=== PATIENT | male | born 1970 | race Caucasian/White ===

== ENCOUNTER 2021-04-08 19:02 | Inpatient (IN) | payer OTHER, SELFPAY ==
[2021-04-08] VITALS (9 sets, daily range): BP systolic 121–154; BP diastolic 52–83; PULSE 70–90; RESP 20–24; TEMP 36.7–37.3; O2SAT 88–97; BMI 32.8; BMI 33.0
--- NOTE | 2021-04-08 19:32 | ECG_ITS ---
APPROVED REPORT Exam: Resting ECG HR:74 bpm ECG Measurements Heart Rate 74 AXES HI 156 P 39 QRSd 86 QRS 30 QT 382 T 11 QTc 424 Conclusion Normal sinus rhythm Normal ECG Electronically signed by : Neal Washington MD 04/12/2021 13:52:09
--- NOTE | 2021-04-08 19:51 | XR_ITS ---
PROCEDURE INFORMATION: Exam: XR Chest Exam date and time: 04/08/2021 7:51 PM Age: 50 years old Clinical indication: Patient HX: Cough, congestion for 1 week, nonsmoker TECHNIQUE: Imaging protocol: XR of the chest. Views: 2 views. COMPARISON: No relevant prior studies available. FINDINGS: Lungs: Lungs are mildly hypoinflated. There are patchy opacities scattered throughout both lungs, greatest in the perihilar regions, suspicious for multifocal pneumonia (possibly atypical/viral). Pleural spaces: No pleural effusion. No pneumothorax. Heart/Mediastinum: Normal heart size. Bones/joints: Scattered mild degenerative changes. IMPRESSION: Findings suspicious for multifocal pneumonia, possibly atypical/viral.
[2021-04-08 20:07] LABS: Influenza A, PCR Not Detected (NotDetected); Influenza B, PCR Not Detected (NotDetected)
[2021-04-08 20:08] LABS: Basophils % 0.8 % (0.1-2.0); Eosinophils % 0.2 % (0.1-12.0); Hematocrit 46.6 % (42.0-52.0); Hemoglobin 15.3 g/dL (14.1-18.0); Lymphocytes # 0.7 K/mm3 (0.7-4.5); Lymphocytes % 18.7 % (10-50); Mean Corpuscular HGB Conc 32.8 g/dL (31.8-35.4); Mean Corpuscular Hemoglobin 29.5 pg (27.0-31.2); Mean Corpuscular Volume 89.9 fl (80-94); Mean Platelet Volume 8.4 fl (7.4-10.4); Monocytes # 0.2 K/mm3 (0.1-1.0); Monocytes % 4.2 % (1.7-9.3); Neutrophils # 2.7 K/mm3 (1.8-7.8); Neutrophils % 76.1 % (37.0-80.0); Platelet Count 258 K/mm3 (142-424); Red Blood Count 5.19 M/mm3 (4.60-6.20); Red Cell Distribution Width 14.1 % (11.5-17.5); White Blood Count 3.5 K/mm3 (4.8-10.8)
[2021-04-08 20:15] LABS: Lactic Acid 1.2 mmol/L (0.7-2.1)
[2021-04-08 20:15] LABS: Alanine Aminotransferase 39 U/L (12-78); Albumin Level 4.4 g/dl (3.5-5.0); Albumin/Globulin Ratio 1.3 (1.1-1.8); Alkaline Phosphatase 67 U/L (38-126); Amylase 53 U/L (30-110); Anion Gap 11.8 mEq/L (5-15); Aspartate Amino Transferase 51 U/L (17-59); Bilirubin,Total 1.1 mg/dl (0.2-1.3); Blood Urea Nitrogen 16 mg/dl (9-20); Calcium 9.3 mg/dl (8.4-10.2); Carbon Dioxide 32 mmol/L (22.0-30.0); Chloride 99 mmol/L (98-107); Creatinine Clearance Estimated 120 mL/min (50-200); Estimated Glomerular Filt Rate 71 ml/min (>60); GFR (African American) 85 ML/MIN (>60); Globulin 3.4 g/dL (1.3-3.2); Glucose 112 mg/dl (74-100); Potassium 3.8 mmoL/L (3.5-5.1); Sodium 139 mmol/L (136-145); Total Protein,Serum 7.8 g/dl (6.3-8.2)
[2021-04-08 20:20] LABS: C-Reactive Protein 86.5 mg/L (0-4)
[2021-04-08 20:28] LABS: Coronavirus 19, PCR Detected (NotDetected)
[2021-04-08 20:32] LABS: Erythrocyte Sedimentation Rate 38 mm/hr (0-20)
[2021-04-08 20:33] LABS: Troponin I < 0.01 ng/ml (0.00-0.034)
--- NOTE | 2021-04-08 20:38 | CT_ITS ---
PROCEDURE INFORMATION: Exam: CTA Chest With Contrast Exam date and time: 04/08/2021 8:38 PM Age: 50 years old Clinical indication: Shortness of breath; Patient HX: SOA; Additional info: Covid positive TECHNIQUE: Imaging protocol: Computed tomographic angiography of the chest with contrast. 3D rendering (Not supervised by radiologist): MIP and/or 3D reconstructed images were created by the technologist. Radiation optimization: All CT scans at this facility use at least one of these dose optimization techniques: automated exposure control; mA and/or kV adjustment per patient size (includes targeted exams where dose is matched to clinical indication); or iterative reconstruction. Contrast material: ISO 370; Contrast volume: 70 ml; Contrast route: INTRAVENOUS (IV); COMPARISON: CR XR CHEST 2V 04/08/2021 7:45 PM FINDINGS: Pulmonary arteries: No large or central pulmonary embolus. There is diffuse artifactual heterogeneity of the subsegmental pulmonary arteries, limiting their evaluation, without convincing filling defect. Aorta: Normal caliber of the thoracic aorta. No aortic dissection. Left vertebral artery arises directly from the aortic arch, an anatomic variation. Lungs: There are numerous patchy ground-glass opacities throughout both lungs, compatible with multifocal pneumonia. Calcified granuloma in the right lower lobe. Pleural spaces: Trace pleural effusions. No pneumothorax. Heart: Normal heart size. Nonspecific small pericardial effusion. Lymph nodes: There is enlarged subcarinal lymph node measuring 2.5 x 1.7 cm. There also enlarged right paratracheal, precarinal, aortopulmonary window, prevascular, and bilateral hilar lymph nodes measuring up to 1.5 cm in caliber. These are all nonspecific, may be reactive to the pneumonia. There are scattered calcified lymph nodes related to old granulomatous disease. Diaphragm: Small hiatal hernia. Distal esophageal wall thickening is not fully evaluated on CT imaging, but suggested esophagitis. Visualized upper abdomen: Hepatosplenomegaly. Diffuse hepatic steatosis. Calcified granulomas in the liver and spleen. Exophytic right upper pole cyst measuring 2.5 cm. Bones/joints: Mild spondylosis. No acute fracture. Soft tissues: Unremarkable. IMPRESSION: 1. No evidence of pulmonary embolus. 2. Multifocal pneumonia, compatible with reported diagnosis of COVID-19. 3. Small hiatal hernia. Distal esophageal wall thickening suggesting esophagitis. 4. Other chronic/ancillary findings as above.
--- NOTE | 2021-04-08 21:10 | HMH.EDSOB ---
ED Disposition Clinical Impression: Pneumonia due to COVID-19 virus, Hypothyroidism (acquired), Obesity (BMI 30-39.9) Disposition: Admitted As Inpatient Condition on Discharge: Serious - Critical Care Critical Care Time: No Attestation: On 04/08/21, the high probability of a clinically significant, sudden or life threatening deterioration of the following system(s) required my full and direct attention, intervention and personal management. The time I documented below is in addition to time spent performing reported procedures but includes the following listed in this critical care notation. Medical Decision Making - Medical Records Medical records reviewed: Yes: I reviewed the patient's medical records. - [place] Inquiry Pt receiving controlled substance: No Vital Signs: 04/08/21 19:04 04/08/21 19:43 04/08/21 19:48 Temperature 99.1 F 99.1 F 99.1 F Temperature Source Oral Oral Pulse Rate 80 Pulse Rate [Apical] 90 90 Respiratory Rate 20 20 20 Blood Pressure 134/78 Blood Pressure [Right Arm] 121/73 132/82 Blood Pressure Mean [Right Arm] 89 98 Blood Pressure Source [Right Arm] Automatic Cuff Automatic Cuff Blood Pressure Position [Right Arm] Sitting Sitting 02 Sat by Pulse Oximetry 93 L 93 L 95 Oxygen Delivery Method Room Air Room Air 04/08/21 20:00 04/08/21 20:15 04/08/21 20:30 Temperature Temperature Source Pulse Rate 81 76 75 Pulse Rate [Apical] Respiratory Rate Blood Pressure Blood Pressure [Right Arm] Blood Pressure Mean [Right Arm] Blood Pressure Source [Right Arm] Blood Pressure Position [Right Arm] 02 Sat by Pulse Oximetry 95 97 94 L Oxygen Delivery Method 04/08/21 20:35 Temperature Temperature Source Pulse Rate 74 Pulse Rate [Apical] Respiratory Rate 20 Blood Pressure 132/77 Blood Pressure [Right Arm] Blood Pressure Mean [Right Arm] Blood Pressure Source [Right Arm] Blood Pressure Position [Right Arm] 02 Sat by Pulse Oximetry 88 L Oxygen Delivery Method Room Air - Lab Data Lab results reviewed: Yes: I reviewed the patient's lab results. Lab Results 04/08/21 19:25: SARS-CoV-2 (PCR) Detected A, Influenza A Untype (PCR) Not detected, Influenza Type B (PCR) Not detected 04/08/21 19:27: Lactate 1.2 04/08/21 19:50: WBC 3.5 L, RBC 5.19, Hgb 15.3, Hct 46.6, MCV 89.9, MCH 29.5, MCHC 32.8, RDW 14.1, Plt Count 258, MPV 8.4, Neut % (Auto) 76.1, Lymph % (Auto) 18.7, [place] % (Auto) 4.2, Eos % (Auto) 0.2, Baso % (Auto) 0.8, Neut # (Auto) 2.7, Lymph # (Auto) 0.7, [place] # (Auto) 0.2, Eos # (Auto) 0.0, Baso # (Auto) 0.0 04/08/21 19:50: Sodium 139, Potassium 3.8, Chloride 99, Carbon Dioxide 32 H, Anion Gap 11.8, BUN 16, Creatinine 1.10, Estimated Creat Clear 120, Estimated GFR 71, Est GFR ( Amer) 85, Glucose 112 H, Calcium 9.3, Total Bilirubin 1.1, AST 51, ALT 39, Alkaline Phosphatase 67, Troponin I < 0.01, C-Reactive Protein 86.5 H, Total Protein 7.8, Albumin 4.4, Globulin 3.4 H, Albumin/Globulin Ratio 1.3, Amylase 53 04/08/21 19:50: ESR 38 H Result diagrams: 04/08/21 19:50 04/08/21 19:50 Orders (Tests/Meds): ED MEDICATIONS Generic Name Dose Route Start Last Admin Trade Name Freq PRN Reason Stop Dose Admin Sodium Chloride 1,000 mls @ 999 mls/hr 04/08/21 20:00 04/08/21 19:57 Sod Chlor 0.9% 1000ml Bag IV 04/08/21 21:00 999 mls/hr .[id number] SELENA Administration Discontinued Medications Generic Name Dose Route Start Last Admin Trade Name Freq PRN Reason Stop Dose Admin Dexamethasone Sodium Phosphate 10 mg 04/08/21 19:51 04/08/21 19:58 Dexamethasone 4mg/Ml 5ml Mdv IV 04/08/21 19:52 10 mg ONCE ONE Administration Iopamidol 70 ml 04/08/21 21:13 04/08/21 21:14 Iopamidol-370 (76%);100ml Bottle IV 04/08/21 21:14 70 ml ONCE ONE Administration Ketorolac Tromethamine 30 mg 04/08/21 19:51 04/08/21 19:57 Ketorolac 30mg/Ml Vial IV 04/08/21 19:52 30 mg ONCE ONE Administration Sodium Chloride 50 ml 04/08
--- NOTE | 2021-04-08 23:08 | PC.NURSE ---
patient up to floor @ this time via Wheelchair.
[2021-04-09 04:00] VITALS: BP 115/75; PULSE 58; RESP 18; TEMP 36.3; O2SAT 94
[2021-04-09 07:10] LABS: Eosinophils % 0.1 % (0.1-12.0); Hematocrit 40.8 % (42.0-52.0); Lymphocytes # 0.7 K/mm3 (0.7-4.5); Lymphocytes % 27.2 % (10-50); Mean Corpuscular HGB Conc 32.6 g/dL (31.8-35.4); Mean Corpuscular Hemoglobin 29.9 pg (27.0-31.2); Mean Corpuscular Volume 91.8 fl (80-94); Mean Platelet Volume 8.6 fl (7.4-10.4); Monocytes # 0.1 K/mm3 (0.1-1.0); Monocytes % 4.9 % (1.7-9.3); Neutrophils # 1.8 K/mm3 (1.8-7.8); Neutrophils % 66.8 % (37.0-80.0); Platelet Count 226 K/mm3 (142-424); Red Blood Count 4.44 M/mm3 (4.60-6.20); Red Cell Distribution Width 14.1 % (11.5-17.5); White Blood Count 2.7 K/mm3 (4.8-10.8)
--- NOTE | 2021-04-09 07:17 | HMH.PHAINT ---
verified home medication list using list from [facility]
[2021-04-09 07:18] LABS: Hemoglobin 13.3 g/dL (14.1-18.0)
--- NOTE | 2021-04-09 07:20 | HMH.PHAVTE ---
[facility] Pharmacy VTE Monitoring - Patient Demographics Admission date: 04/09/21 Report Date: 04/09/21 Time: 07:20 Allergies/Adverse Reactions: Patient Allergies Penicillins Allergy (Verified 04/08/21 19:50) Unknown allergy reaction Height: 1.8 m Weight: 107.048 kg Patient Problems: Current Active Problems Pneumonia due to COVID-19 virus (Acute) Hypothyroidism (acquired) (Acute) Obesity (BMI 30-39.9) (Acute) - VTE Risk Labs: VTE Related Lab Results Hgb 13.3 g/dL (14.1-18.0) L D 04/09/21 06:35 Hct 40.8 % (42.0-52.0) L 04/09/21 06:35 Plt Count 226 K/mm3 (142-424) 04/09/21 06:35 BUN 16 mg/dl (9-20) 04/08/21 19:50 Creatinine 1.10 mg/dl (0.66-1.25) 04/08/21 19:50 Estimated Creat Clear 120 mL/min (50-200) 04/08/21 19:50 Was VTE Risk Assessment Performed: Yes VTE Score: 2 VTE Risk Level: Very Low Risk Clinical Trial Participant: No - Prophylaxis VTE Prophylaxis Ordered?: Yes Types of VTE Prophylaxis: TEDS Knee High Location of Applied Device: Bilateral Lower Extremeties
[2021-04-09 07:21] LABS: Anion Gap 8.6 mEq/L (5-15); Blood Urea Nitrogen 18 mg/dl (9-20); Calcium 8.8 mg/dl (8.4-10.2); Carbon Dioxide 31 mmol/L (22.0-30.0); Chloride 102 mmol/L (98-107); Chol/HDL Ratio 5.7 (1-3.5); Cholesterol 85 mg/dl (140-200); Creatinine Clearance Estimated 165 mL/min (50-200); Estimated Glomerular Filt Rate 102 ml/min (>60); GFR (African American) 123 ML/MIN (>60); Glucose 145 mg/dl (74-100); HDL Cholesterol 15 mg/dl (40-60); Magnesium 2.5 mg/dl (1.6-2.3); Potassium 4.6 mmoL/L (3.5-5.1); Sodium 137 mmol/L (136-145); Triglycerides 106 mg/dl (30-150); VLDL Cholesterol 21 mg/dL (0-40)
[2021-04-09 07:32] LABS: Direct LDL Cholesterol 42.87 mg/dL (100-129)
[2021-04-09 08:00] VITALS: BP 137/81; PULSE 69; RESP 18; TEMP 36.6; O2SAT 95
--- NOTE | 2021-04-09 09:10 | HMH.PULMCON ---
*Admission Date: 04/09/21 *Reason for consult:: Acute hypoxic respiratory failure, COVID-19 pneumonia *History of present illness: Mr. Vega is a 50-year-old female never smoker, no prior respiratory complaints, not yet vaccinated for COVID-19 pneumonia presented to the hospital with worsening respiratory distress, found to be positive for COVID-19 and pulmonary was called for further management. Upon further questioning patient admits symptoms for the last 7 to 10 days, initially started as a fatigue and weakness eventually progressed to respiratory distress. 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 [facility] History Medical History: Denies:: Cancer, Diabetes Mellitus Type 1, Diabetes Mellitus Type 2, MRSA *Have you ever received a pneumonia vaccine?: No *Have you received a flu vaccine this season?: No Other Medical History: Reports: Thyroid Disease (hypothyroid) Other Surgeries: Yes: No Previous Surgery Amputation: No Fractures: No - *Social History Last grade of school completed: 11th or 12th Smoking Status: Former smoker Alcohol Intake: never Alcohol Intake Frequency:: other Substance Use Type: other *Occupational Status:: employed Household Members: spouse, children *Travel in the last 8 weeks: None Family Hx:: Cancer ROS - Cons Reports body ache(s), Reports chills, Reports fatigue, Reports lack of energy - ENT Denies bleeding gums - Card Reports shortness of breath, Reports shortness of breath with activity, Denies chest pain at rest - Resp Respiratory: Reports system reviewed and no additional complaints, except as docu, Reports as per HPI, Reports shortness of breath, Reports change in phlegm color, Reports dyspnea, Reports excessive phlegm production, Denies pain on inspiration, Reports cough with sputum production, Denies pain with breathing - GI Gastrointestingal: Denies: abdominal pain - Psych Denies thoughts of hurting/killing others, Denies thoughts of hurting/killing yourself Meds Home Medications Medication Instructions Recorded Confirmed Type Levothyroxine Sodium 100 mcg PO DAILY 04/08/21 04/09/21 History [Levothyroxine 100mcg (0.1MG) Tab] Allergies Allergy/AdvReac Type Severity Reaction Status Date / Time Penicillins Allergy Unknown Verified 04/08/21 19:50 allergy reaction Exam - Constitutional Constitutional:: Present: no acute distress, comfortable - HENMT Exam HENMT: Present: normocephalic, atraumatic - Eye Exam Eyes:: Present: normal appearance both eyes and related structures - Neck Exam Neck:: Present: normal visual inspection - Respiratory Exam Respiratory:: Present: able to speak in complete sentences, no respiratory distress, rales. Absent: wheezing - Cardiovascular Exam Cardiac:: Present: S1, S2 - GI Exam GI:: Present: soft, no hepatosplenomegaly - Skin Exam Skin: Present: warm, no rash - Neurological Exam Neurological: Present: alert, awake, normal cognition - Extremities Exam Extremities: Present: no cyanosis, no clubbing, no edema Internal Medicine - CN: Reslt - Labs CBC & Chem 7: 04/09/21 06:35 04/09/21 06:35 Labs: Short CBC 04/08/21 04/09/21 Range/Units 19:50 06:35 WBC 3.5 L 2.7 L (4.8-10.8) K/mm3 Hgb 15.3 13.3 L D (14.1-18.0) g/dL Hct 46.6 40.8 L (42.0-52.0) % Plt Count 258 226 (142-424) K/mm3 BMP 04/08/21 04/09/21 19:50 06:35 Sodium 139 137 Potassium 3.8 4.6 D Chloride 99 102 Carbon Dioxide 32 H 31 H BUN 16 18 Creatinine 1.10 0.80 D Glucose 112 H 145 H D Calcium 9.3 8.8 Cardiac Enzymes 04/08/21 Range/Units 19:50 Troponin I < 0.01 (0.00-0.034) ng/ml Liver Function 04/08/21 Range/Units 19:50 Total Bilirubin 1.1 (0.2-1.3) mg/dl AST 51 (17-59) U/L ALT 39 (12-78) U/L Alkaline Phosphatase 67 (38-126) U/L Albumin 4.4 (3.5-5.0) g/dl A
--- NOTE | 2021-04-09 09:15 | HMH.HP ---
*Admission Date: 04/09/21 *Chief complaint: Shortness of Breath *History of present illness: 50 YOM to the [facility] ED for increasing SOA and feeloing weak.. He reports he has been SOA and increasely worse over last week. He reports prod thin cough w/ fefver/chills/body aches He denies vaccination. 04/08/21 CXR: FINDINGS: Lungs: Lungs are mildly hypoinflated. There are patchy opacities scattered throughout both lungs, greatest in the perihilar regions, suspicious for multifocal pneumonia (possibly atypical/viral). Pleural spaces: No pleural effusion. No pneumothorax. Heart/Mediastinum: Normal heart size. Bones/joints: Scattered mild degenerative changes. IMPRESSION: Findings suspicious for multifocal pneumonia, possibly atypical/viral. Electronically signed by Song Santoro MD 04/08/21 Chest CTA: FINDINGS: Pulmonary arteries: No large or central pulmonary embolus. There is diffuse artifactual heterogeneity of the subsegmental pulmonary arteries, limiting their evaluation, without convincing filling defect. Aorta: Normal caliber of the thoracic aorta. No aortic dissection. Left vertebral artery arises directly from the aortic arch, an anatomic variation. Lungs: There are numerous patchy ground-glass opacities throughout both lungs, compatible with multifocal pneumonia. Calcified granuloma in the right lower lobe. Pleural spaces: Trace pleural effusions. No pneumothorax. Heart: Normal heart size. Nonspecific small pericardial effusion. Lymph nodes: There is enlarged subcarinal lymph node measuring 2.5 x 1.7 cm. There also enlarged right paratracheal, precarinal, aortopulmonary window, prevascular, and bilateral hilar lymph nodes measuring up to 1.5 cm in caliber. These are all nonspecific, may be reactive to the pneumonia. There are scattered calcified lymph nodes related to old granulomatous disease. Diaphragm: Small hiatal hernia. Distal esophageal wall thickening is not fully evaluated on CT imaging, but suggested esophagitis. Visualized upper abdomen: Hepatosplenomegaly. Diffuse hepatic steatosis. Calcified granulomas in the liver and spleen. Exophytic right upper pole cyst measuring 2.5 cm. Bones/joints: Mild spondylosis. No acute fracture. Soft tissues: Unremarkable. IMPRESSION: 1. No evidence of pulmonary embolus. 2. Multifocal pneumonia, compatible with reported diagnosis of COVID-19. 3. Small hiatal hernia. Distal esophageal wall thickening suggesting esophagitis. 4. Other chronic/ancillary findings as above. Electronically signed by Song Santoro MD 50 YOM lying in bed resting quietly, he denies any increased SOA during night. Current oxygenation 94% on 2 L N/C. [facility] History Medical History: Denies:: Cancer, Diabetes Mellitus Type 1, Diabetes Mellitus Type 2, MRSA *Have you ever received a pneumonia vaccine?: No *Have you received a flu vaccine this season?: No Other Medical History: Reports: Thyroid Disease (hypothyroid) Other Surgeries: Yes: No Previous Surgery Amputation: No Fractures: No - *Social History Last grade of school completed: 11th or 12th Smoking Status: Former smoker Alcohol Intake: never *Occupational Status:: employed Household Members: spouse, children *Travel in the last 8 weeks: None Family Hx:: Cancer Review of Systems - Review of Systems Review of systems:: pertinent systems reviewed and negative unless documented below - Constitutional Reports body ache(s), Reports chills, Reports fatigue, Reports fever(s) - Eyes Denies blurry vision, Denies loss of vision - ENT Denies abnormal hearing, Denies mouth pain, Denies pain with swallowing - *Cardiovascular Reports shortness of breath, Reports shortness of breath with activity, Denies chest pain, Denies chest pain with activity - *Respiratory Reports chest congestion, Reports cough, Reports shortness of breath, Reports shortness of breath with activity, Denies coughing up blood
[2021-04-09 09:24] LABS: Chloride 105 mmol/L (98-107); Potassium 4.8 mmoL/L (3.5-5.1); Sodium 139 mmol/L (136-145)
[2021-04-09 09:27] LABS: Alanine Aminotransferase 32 U/L (12-78); Albumin Level 3.8 g/dl (3.5-5.0); Albumin/Globulin Ratio 1.1 (1.1-1.8); Alkaline Phosphatase 45 U/L (38-126); Anion Gap 12.8 mEq/L (5-15); Aspartate Amino Transferase 48 U/L (17-59); Bilirubin,Total 0.9 mg/dl (0.2-1.3); Calcium 8.4 mg/dl (8.4-10.2); Carbon Dioxide 26 mmol/L (22.0-30.0); Globulin 3.4 g/dL (1.3-3.2); Glucose 146 mg/dl (74-100); Total Protein,Serum 7.2 g/dl (6.3-8.2)
[2021-04-09 10:21] LABS: Blood Urea Nitrogen 18 mg/dl (9-20); Creatinine Clearance Estimated 165 mL/min (50-200); Estimated Glomerular Filt Rate 102 ml/min (>60); GFR (African American) 123 ML/MIN (>60)
[2021-04-09 12:00] VITALS: BP 133/91; PULSE 75; RESP 17; TEMP 36.9; O2SAT 92
--- NOTE | 2021-04-09 14:05 | PC.NURSE ---
Have educated pt on use of IS and encouraged use. Have also encouraged pt to lie prone and educated as to why. Pt verbs understanding and is pleasant and cooperative. VSS. Pt remains on 2 L NC. CB in reach. Mx continues.
[2021-04-09 16:00] VITALS: BP 139/67; PULSE 96; RESP 16; TEMP 36.8; O2SAT 96
[2021-04-09 19:18] VITALS: O2SAT 96
[2021-04-09 21:25] VITALS: BP 126/71; PULSE 68; RESP 20; TEMP 36.9; O2SAT 95
[2021-04-10] VITALS: BP 123/68; PULSE 68; RESP 17; TEMP 37; O2SAT 92
[2021-04-10 03:46] VITALS: BP 126/76; PULSE 68; RESP 16; TEMP 36.7; O2SAT 97
--- NOTE | 2021-04-10 05:24 | PC.NURSE ---
Patient rested well through night. VSS on 2L per nc. Alert and oriented x4. Denies pain. Assessment unchanged during shift. Patient up with sba to bathroom. Prones while in bed. IVF infusing per order.
[2021-04-10 05:31] VITALS: BMI 32.7
[2021-04-10 07:07] LABS: Basophils % 0.6 % (0.1-2.0); Eosinophils % 0.1 % (0.1-12.0); Hematocrit 38.7 % (42.0-52.0); Hemoglobin 12.5 g/dL (14.1-18.0); Lymphocytes # 1.1 K/mm3 (0.7-4.5); Lymphocytes % 23.7 % (10-50); Mean Corpuscular HGB Conc 32.2 g/dL (31.8-35.4); Mean Corpuscular Hemoglobin 29.7 pg (27.0-31.2); Mean Corpuscular Volume 92.2 fl (80-94); Mean Platelet Volume 8.8 fl (7.4-10.4); Monocytes # 0.2 K/mm3 (0.1-1.0); Monocytes % 5.1 % (1.7-9.3); Neutrophils # 3.2 K/mm3 (1.8-7.8); Neutrophils % 70.5 % (37.0-80.0); Platelet Count 256 K/mm3 (142-424); Red Cell Distribution Width 13.9 % (11.5-17.5); White Blood Count 4.6 K/mm3 (4.8-10.8)
[2021-04-10 07:14] LABS: Alanine Aminotransferase 30 U/L (12-78); Albumin Level 3.5 g/dl (3.5-5.0); Albumin/Globulin Ratio 1.3 (1.1-1.8); Alkaline Phosphatase 48 U/L (38-126); Anion Gap 10.8 mEq/L (5-15); Aspartate Amino Transferase 38 U/L (17-59); Bilirubin,Total 0.6 mg/dl (0.2-1.3); Blood Urea Nitrogen 17 mg/dl (9-20); Calcium 8.6 mg/dl (8.4-10.2); Carbon Dioxide 29 mmol/L (22.0-30.0); Chloride 107 mmol/L (98-107); Creatinine Clearance Estimated 164 mL/min (50-200); Estimated Glomerular Filt Rate 102 ml/min (>60); GFR (African American) 123 ML/MIN (>60); Globulin 2.7 g/dL (1.3-3.2); Glucose 98 mg/dl (74-100); Potassium 3.8 mmoL/L (3.5-5.1); Sodium 143 mmol/L (136-145); Total Protein,Serum 6.2 g/dl (6.3-8.2)
[2021-04-10 08:00] VITALS: BP 140/68; PULSE 78; RESP 19; TEMP 36.8; O2SAT 95; O2SAT 97
--- NOTE | 2021-04-10 09:14 | HMH.PULMPN ---
Internal Medicine - PN: Subj *Date: 04/10/21 *Time: 11:24 Interval history: No acute respiratory events overnight. Patient respiratory status remained stable. Patient admits improvement in his symptoms. Exam - Constitutional Constitutional:: Present: no acute distress, comfortable - HENMT Exam HENMT: Present: normocephalic, atraumatic - Eye Exam Eyes:: Present: normal appearance both eyes and related structures - Neck Exam Neck:: Present: normal visual inspection - Respiratory Exam Respiratory:: Present: able to speak in complete sentences, no respiratory distress, rales. Absent: wheezing - Cardiovascular Exam Cardiac:: Present: S1, S2 - GI Exam GI:: Present: soft - Skin Exam Skin: Present: warm, no rash - Neurological Exam Neurological: Present: alert, awake, normal cognition - Extremities Exam Extremities: Present: no cyanosis, no clubbing, no edema Assessment and Plan - Assessment and plan all Dx Assessment and Plan for all problems:: #Acute hypoxic respiratory failure: #COVID-19 pneumonia: 50-year-old male noted vaccinated. Never smoker. No prior respiratory complaints. CTA negative for Emboli, bilateral diffuse groundglass opacities Leucopenia. CRP elevated at 86.5. Interval update: Patient respiratory status remained stable. He continued to saturate 92 to 94% 2 L nasal cannula. He admits improvement in his symptoms. Plan: -Continue nasal cannula oxygen supplementation to maintain O2 saturation goal of 88% on above -Continue awake proning protocol -Continue remdesivir x5 days or until discharge and -Continue dexamethasone x10 days and baricitinib for 14 days. -Levofloxacin 750 mg IV daily for 5 days. -Combivent every 6 hours as needed. #Thank you for involving pulmonary in this patient care. We will follow the patient in pulmonary clinic in 4-6 weeks full PFT and 6-minute walk testing
[2021-04-10 11:42] VITALS: BP 124/79; PULSE 65; RESP 18; TEMP 36.6; O2SAT 93
--- NOTE | 2021-04-10 12:03 | HMH.DCSUM ---
General - General Admission date:: 04/08/21 Discharge date: 04/10/21 HPI HPI: 50 YOM to the [facility] ED for increasing SOA and feeloing weak.. He reports he has been SOA and increasely worse over last week. He reports prod thin cough w/ fefver/chills/body aches He denies vaccination. 04/08/21 CXR: FINDINGS: Lungs: Lungs are mildly hypoinflated. There are patchy opacities scattered throughout both lungs, greatest in the perihilar regions, suspicious for multifocal pneumonia (possibly atypical/viral). Pleural spaces: No pleural effusion. No pneumothorax. Heart/Mediastinum: Normal heart size. Bones/joints: Scattered mild degenerative changes. IMPRESSION: Findings suspicious for multifocal pneumonia, possibly atypical/viral. Electronically signed by Song Santoro MD 04/08/21 Chest CTA: FINDINGS: Pulmonary arteries: No large or central pulmonary embolus. There is diffuse artifactual heterogeneity of the subsegmental pulmonary arteries, limiting their evaluation, without convincing filling defect. Aorta: Normal caliber of the thoracic aorta. No aortic dissection. Left vertebral artery arises directly from the aortic arch, an anatomic variation. Lungs: There are numerous patchy ground-glass opacities throughout both lungs, compatible with multifocal pneumonia. Calcified granuloma in the right lower lobe. Pleural spaces: Trace pleural effusions. No pneumothorax. Heart: Normal heart size. Nonspecific small pericardial effusion. Lymph nodes: There is enlarged subcarinal lymph node measuring 2.5 x 1.7 cm. There also enlarged right paratracheal, precarinal, aortopulmonary window, prevascular, and bilateral hilar lymph nodes measuring up to 1.5 cm in caliber. These are all nonspecific, may be reactive to the pneumonia. There are scattered calcified lymph nodes related to old granulomatous disease. Diaphragm: Small hiatal hernia. Distal esophageal wall thickening is not fully evaluated on CT imaging, but suggested esophagitis. Visualized upper abdomen: Hepatosplenomegaly. Diffuse hepatic steatosis. Calcified granulomas in the liver and spleen. Exophytic right upper pole cyst measuring 2.5 cm. Bones/joints: Mild spondylosis. No acute fracture. Soft tissues: Unremarkable. IMPRESSION: 1. No evidence of pulmonary embolus. 2. Multifocal pneumonia, compatible with reported diagnosis of COVID-19. 3. Small hiatal hernia. Distal esophageal wall thickening suggesting esophagitis. 4. Other chronic/ancillary findings as above. Electronically signed by Song Santoro MD 50 YOM lying in bed resting quietly, he denies any increased SOA during night. Current oxygenation 94% on 2 L N/C. Hospital Course Hospital Course: 50 YOM to the [facility] ED for increasing SOA and feeloing weak.. He reports he has been SOA and increasingly worse over last week. He reports prod thin cough w/ fever/chills/body aches He denies vaccination. 04/08/21 CXR: FINDINGS: Lungs: Lungs are mildly hypoinflated. There are patchy opacities scattered throughout both lungs, greatest in the perihilar regions, suspicious for multifocal pneumonia (possibly atypical/viral). Pleural spaces: No pleural effusion. No pneumothorax. Heart/Mediastinum: Normal heart size. Bones/joints: Scattered mild degenerative changes.
--- NOTE | 2021-04-10 13:18 | SW/DCPLANNER ---
ATTEMPTED TO SET UP HOME 02 OUT OF A DME OUT OF [place] BUT THEY COULD NOT DELIVER A PORTABLE TANK UNTIL AFTER 6:00 RADHA, CALLED THE LOCAL DME [facility] AND THEY WILL BRING A PORTABLE TANK UP TO THE HOSPITAL AND PATIENT CAN LEAVE EARLIER.. I CALLED TO INFORM HER HE IS GOING TO DISCHARGE HOME..
== END 2021-04-10 15:25 | disposition home or self-care (01) | DRG 177 ==
LOC: ER 20:04 → 2ND 21:51
PROVIDERS: Nurse Practitioner Family; Admitting Provider Emergency Medicine; Emergency Provider Emergency Medicine; PCP Family Medicine; Visit Provider Emergency Medicine
DX: U07.1 COVID-19 (principal); J12.82 Pneumonia due to coronavirus disease 2019; J96.01 Acute respiratory failure with hypoxia; E03.9 Hypothyroidism, unspecified; E66.9 Obesity, unspecified; Z68.32 Body mass index [BMI] 32.0-32.9, adult
CPT/HCPCS: 71046; 71275; 80048; 80053; 80061; 82150; 83605; 83735; 84484; 85025; 85651; 86140; 93005; 96365; 96375; 99284; C9803; J1956; Q9967; U0003; U0005

== ENCOUNTER 2022-04-29 11:42 | Emergency (ER) | payer OTHER, SELFPAY ==
[2022-04-29 11:43] VITALS: BP 127/84; PULSE 65; RESP 16; TEMP 36.7; O2SAT 98; BMI 31.4
--- NOTE | 2022-04-29 11:49 | HMH.EDABDPAI ---
Discharge Plan Disposition Patient Disposition: Home, Self-Care Condition: Good Prescriptions Prescriptions: New ketorolac 10 mg Tablet 10 mg PO Q6H PRN (Reason: pain.) Qty: 8 0RF No Action levothyroxine 100 MCG tablet 100 mcg PO DAILY levofloxacin 750 MG tablet 750 mg PO DAILY 3 Days Qty: 3 0RF prednisone 20 MG tablet 20 mg PO BID 8 Days Qty: 16 0RF Referrals Follow up/Referrals: Bryan Gauthier MD [Primary Care Provider] - See instructions Activity Restrictions/Add. Instructions Additional Instructions/Restrictions: Drink plenty of fluids by mouth. Return immediately to the emergency department if you develop a fever or if you worsen in any way. You can take [id number] Tylenol as needed. The prescription I have written you can be taken with Tylenol. However do not take it with ibuprofen. You can take ibuprofen instead of the Toradol I have prescribed for you. Follow-up with a urologist if you do not improve in the next week or so. I have spoken with Dr. White who is now working in [place]. You can call his office for follow-up. Clinical Impressions Clinical Impression: Renal colic on left side Instructions Patient Instructions: Kidney Stones -- Adult, DI for Kidney Stones Discharge ED Provider: Brooklyn Trejo Abdominal Pain HPI General Chief Complaint: Abdominal Pain Stated Complaint: possible kidney stones Time Seen by Provider: 04/29/22 11:48 History of Present Illness HPI narrative: The patient presents to the emergency department complaining of left flank pain. This pain was a sudden onset pain that started last night. It then subsided and recurred this morning. At this point there is no pain anymore. The patient never had this pain before. He has no history of kidney stones. He feels completely normal at this time. He did feel nauseous when the pain was intense. The pain is not exacerbated by movement or position. Related Data Home Medications Medication Instructions Recorded Confirmed levothyroxine 100 mcg tablet 100 mcg PO DAILY Hypothyroidism 04/08/21 04/29/22 Previous Rx's Medication Instructions Recorded levofloxacin 750 mg tablet 750 mg PO DAILY 3 days #3 tabs 04/10/21 prednisone 20 mg tablet 20 mg PO BID 8 days #16 tabs 04/10/21 ketorolac 10 mg tablet 10 mg PO Q6H PRN pain. #8 tabs 04/29/22 Allergies Allergy/AdvReac Type Severity Reaction Status Date / Time Penicillins Allergy Unknown Verified 04/08/21 19:50 allergy reaction [facility] Disclaimer: The information contained in this section may have been updated after the patient was seen, as this information can be updated by other users. Social History Smoking Status: Former smoker alcohol intake: never substance use type: other current occupational status: employed Travel in the last 8 weeks: None household members: spouse and children current occupation: [employer] caffeine: Yes ROS Obtained: Yes All systems reviewed & no additional complaints except as documented Physical Exam General General appearance: alert and in no apparent distress Head Head exam: atraumatic Eye Eye exam: Present normal appearance and PERRL; Absent scleral icterus ENT ENT exam: Present normal exam Neck Neck exam: Present normal inspection and full ROM; Absent tenderness or meningismus Chest Chest inspection: Present normal inspection and symmetric chest wall rise; Absent tenderness Respiratory Respiratory exam: Present normal lung sounds bilaterally; Absent respiratory distress or accessory muscle use Cardiovascular Cardiovascular exam: Present regular rate, normal rhythm and normal heart sounds Abdominal Exam Abdominal exam: Present soft and normal bowel sounds; Absent distention, tenderness, heel tap sign, Barry's sign, Rovsing's sign, tenderness at McBurney's Point or mass Extremities Exam Extremities ex
--- NOTE | 2022-04-29 11:53 | CT_ITS ---
FINAL REPORT TECHNIQUE: Axial images through the abdomen and pelvis were performed without contrast.This study was performed with techniques to keep radiation doses as low as reasonably achievable, (ALARA). Individualized dose reduction techniques using automated exposure control or adjustment of mA and/or kV according to the patient's size were employed. CLINICAL HISTORY: Sudden onset left flank pain FINDINGS: ABDOMEN: The lung bases are clear. The heart size is normal. The liver is fatty infiltrated. A 23 mm mass is seen in the upper pole the right kidney which does not appear to represent a simple cyst. Favor complicated cyst over neoplasm. The recommend renal mass protocol CT for further evaluation. There is a less than 3 mm nonobstructing left renal stone. Moderate left hydronephrosis is seen secondary to a 3 mm stone at the level of the left UPJ. The spleen is normal. No adrenal mass is identified. The aorta is normal in caliber. There is no significant free fluid or adenopathy. PELVIS: The appendix is normal. There is mild wall thickening of the urinary bladder. There is no significant free fluid or adenopathy. IMPRESSION: Moderate left hydronephrosis secondary to a 3 mm stone at the level of the UPJ. Nonobstructing left nephrolithiasis. Small right renal mass, incompletely characterized, which does not appear to represent a simple cyst. Recommend renal mass protocol CT for further evaluation. Reviewed, Interpreted and Dictated by Zia Hammonds III, MD Transcribed by Jayde Carey Authenticated and . [facility]
[2022-04-29 11:56] LABS: Microscopic, Urine URINE MICROSCOPIC (MICROSCOPIC)
[2022-04-29 12:14] LABS: Appearance,Urine CLEAR (Clear); Bilirubin,Urine Negative (Negative); Blood, Urine 2+ (Negative); Color,Urine YELLOW (Yellow); Glucose,Urine (UA) Negative (Negative); Ketones,Urine Negative (Negative); Leukocyte Esterase,Urine Negative (Negative); Nitrate,Urine Negative (Negative); Protein,Urine Negative (Negative)
--- NOTE | 2022-04-29 12:28 | PC.NURSE ---
rounded on pt at this time, updated pt on POC. pt sitting at edge of bed on cellphone.
[2022-04-29 12:31] VITALS: BP 119/89; PULSE 74; RESP 20; O2SAT 96
[2022-04-29 12:39] LABS: Bacteria,Urine Trace /lpf; RBC,Urine Occasional #/hpf (0-3); Squamous Epithelial Cell,Urine Occasional #/hpf (0-5); WBC,Urine Occasional #/hpf (0-3)
--- NOTE | 2022-04-29 13:17 | PC.NURSE ---
Dr Trejo speaking with Dr Sanchez office
[2022-04-29 13:35] VITALS: BP 135/88; PULSE 71; RESP 16; TEMP 36.7
== END 2022-04-29 13:36 | disposition home or self-care (01) ==
PROVIDERS: Emergency Provider Emergency Medicine; PCP Family Medicine
DX: N23 Unspecified renal colic (principal); Z87.891 Personal history of nicotine dependence
CPT/HCPCS: 74176; 81001; 99284